=== PATIENT | male | born 1990 | race Caucasian/White ===

== ENCOUNTER 2023-12-01 18:19 | Emergency (ER) | payer BC ==
[2023-12-01 18:48] VITALS: BP 110/67; PULSE 61; RESP 18; TEMP 98.4; BMI 31.1
[2023-12-01] MEDS ORDERED: KETOROLAC TROMETHAMINE 30 MG/1 ML VIAL IM ONE (20:20)
[2023-12-01] MEDS ORDERED: ACETAMINOPHEN 500 MG TABLET (FP) PO ONE (20:20)
[2023-12-01] MEDS ORDERED: METHOCARBAMOL 500 MG TABLET PO ONE (20:21)
[2023-12-01] MEDS ORDERED: METHOCARBAMOL 500 MG TABLET ONE (20:27)
[2023-12-01] MEDS ORDERED: KETOROLAC TROMETHAMINE 30 MG/1 ML VIAL ONE (20:27)
[2023-12-01] MEDS ORDERED: ACETAMINOPHEN 500 MG TABLET (FP) ONE (20:27)
== END 2023-12-01 21:45 | disposition home or self-care (01) ==
LOC: JERFT 18:19
PROC: 3E0233Z Introduction of Anti-inflammatory into Muscle, Percutaneous Approach (ICD-10-PCS; principal; 2023-12-01)
DX: M54.2 Cervicalgia (principal)
CPT/HCPCS: 99284-25